=== PATIENT | female | born 2000 | race Hispanic/Latino ===

== ENCOUNTER 2019-02-14 22:11 | Emergency (ER) | payer MEDICAID ==
[~2019-02-14] VITALS: Ht 172.7 cm; Wt 80.0 kg
[~2019-02-14 22:11] MED LIST: AMOXICILLIN875 MG PO; ANUCORT-HC25 MG RE; BACTRIM DS1 TAB PO; COLACE100 MG PO; NEXIUM40 M1 PO; TESSALON PER100 MG PO; ZOFRAN ODT4 MG PO
[2019-02-15 00:02] LABS: HEMATOCRIT 38.4 % (37.0-47.0); HEMOGLOBIN 12.7 g/dl (12.0-16.0); IMMATURE GRANULOCYTES 0.3 % (0.0-5.0); MEAN CELL VOLUME 85.5 fL CALC (80.0-100.0); MEAN CORPUSCULAR HGB 28.3 pG CALC (26.0-32.0); MEAN CORPUSCULAR HGB CONC 33.1 g/L CALC (32.0-36.0); NEUT# 6.66 thou/uL (2.00-7.15); RED BLOOD COUNT 4.49 mill/uL (4.20-5.60); RED CELL DISTRI WIDTH 12.7 % (11.5-15.5); URINE BILIRUBIN - DIPSTICK NEGATIVE (NEGATIVE); URINE BLOOD DIPSTICK NEGATIVE (NEGATIVE); URINE COLOR YELLOW; URINE GLUCOSE - DIPSTICK NEGATIVE (NEGATIVE); URINE KETONE NEGATIVE (NEGATIVE); URINE LEUK ESTERASE NEGATIVE (NEGATIVE); URINE NITRITE - DIPSTICK NEGATIVE (Negative); URINE PROTEIN - DIPSTICK NEGATIVE (NEG-TRACE); URINE UROBILINOGEN - DIPSTICK 0.2 E.U./dL (0.2)
[2019-02-15 00:19] LABS: ALBUMIN 4.3 g/dL (3.2-5.0); ALKALINE PHOSPHATASE 66 u/l (38-126); AMYLASE 59 u/l (30-110); ANION GAP 16 (6-22 (CALC)); BILIRUBIN, TOTAL 0.3 mg/dL (0.0-1.4); BUN 8 mg/dL (7-17); BUN/CREATININE RATIO 14 (12-20 (CALC)); CARBON DIOXIDE 25 mmol/l (22-30); CHLORIDE 104 mmol/l (95-108); CREATININE 0.6 mg/dL (0.5-1.0); GFR > 60 ML/MIN (>=60 (CALC)); GFR FOR AFR.AMER. > 60 ML/MIN (>=60 (CALC)); LIPASE 79 u/l (23-300); POTASSIUM 4.3 mmol/l (3.5-5.1); SGOT/AST 21 u/l (14-36); SODIUM 140 mmol/l (137-146); TOTAL PROTEIN 7.5 g/dL (6.3-8.2)
[2019-02-15] MEDS ORDERED: PEPCID20 MG PO (02:08)
[2019-02-15] MEDS ORDERED: MAGNESIUM296 ML/BTL PO (02:08)
[2019-02-15 02:18] VITALS: BP 122/75
== END 2019-02-15 02:33 | disposition home or self-care (01) ==
LOC: ED 22:11
PROVIDERS: Family Medicine
DX: K29.70 Gastritis, unspecified, without bleeding (principal); K59.00 Constipation, unspecified; D17.1 Benign lipomatous neoplasm of skin and subcutaneous tissue of trunk

== ENCOUNTER 2019-06-20 23:25 | Emergency (ER) | payer MEDICAID ==
[~2019-06-20 23:25] MED LIST changes: +MAGNESIUM296 ML/BTL PO; +PEPCID20 MG PO
== END 2019-06-20 23:41 | disposition left against medical advice (07) | DRG 951 ==
LOC: ED 23:25 → LWOBS 23:41
DX: Z53.21 Procedure and treatment not carried out due to patient leaving prior to being seen by health care provider (principal)

== ENCOUNTER 2019-07-29 | Emergency (ER) | payer MEDICAID ==
[2019-07-29 00:59] LABS: URINE BILIRUBIN - DIPSTICK NEGATIVE (NEGATIVE); URINE BLOOD DIPSTICK MODERATE (NEGATIVE); URINE COLOR YELLOW; URINE GLUCOSE - DIPSTICK NEGATIVE (NEGATIVE); URINE KETONE NEGATIVE (NEGATIVE); URINE NITRITE - DIPSTICK NEGATIVE (Negative); URINE PROTEIN - DIPSTICK 30 mg/dL (NEG-TRACE); URINE SPECIFIC GRAVITY 1.025; URINE UROBILINOGEN - DIPSTICK 0.2 E.U./dL (0.2)
[2019-07-29 01:10] LABS: URINE EPITHELIAL CELLS MODERATE EPI/hpf (0-FEW); URINE LEUK ESTERASE NEGATIVE (NEGATIVE); URINE RBC 50-100 RBC/hpf (0-5)
[2019-07-29 01:11] LABS: URINE BACTERIA MODERATE hpf
[2019-07-29] MEDS ORDERED: BACTRIM DS1 TAB PO (01:14)
== END 2019-07-29 01:30 | disposition home or self-care (01) ==
PROVIDERS: Family Medicine
DX: N30.00 Acute cystitis without hematuria (principal)

== ENCOUNTER 2024-02-06 10:27 | Day surgery (SDC) | payer OTHER ==
[~2024-02-06] VITALS: Ht 167.6 cm; Wt 99.8 kg
[~2024-02-06 10:27] MED LIST changes: +TYLENOL325 M2 PO
[2024-02-06] MEDS ORDERED: LACTATED RINGER'S 1,000 ML IV ONE (10:43)
[2024-02-06] MEDS ORDERED: FAMOTIDINE 10MG/ML 2ML SDV IV ONE (10:43)
[2024-02-06 12:26] VITALS: BP 112/94
[2024-02-06] MEDS ORDERED: PROPOFOL 200 MG/20 ML VIAL IV ONE (14:31)
[2024-02-06] MEDS ORDERED: LIDOCAINE HCL 2% 2ML SDV IV ONE (14:31)
== END 2024-02-06 13:31 | disposition home or self-care (01) ==
LOC: ENDO 10:27 → ORM 12:45 → ENDO 13:31 → ORM 14:40 → ENDO 14:40 → ORM 15:15
PROVIDERS: ATTEND Internal Medicine Gastroenterology
DX: K64.8 Other hemorrhoids (principal)